=== PATIENT | male | born 1975 | race Caucasian/White ===

== ENCOUNTER 2016-08-08 09:11 | Emergency (ER) | payer BC ==
[~2016-08-08] VITALS: Ht 198.1 cm; Wt 127.1 kg
[~2016-08-08 09:11] MED LIST: HMLI SC; INSDGI SC
[2016-08-08 09:14] VITALS: TEMP 36.4; Ht 198.1 cm; Wt 127.1 kg
[2016-08-08] MEDS ORDERED: INSDGI SC (09:39)
[2016-08-08] MEDS ORDERED: [UNRECOGNIZED DRUG - OTHER] PO (09:39)
[2016-08-08] MEDS ORDERED: CHOL100010 PO (09:39)
[2016-08-08] MEDS ORDERED: INSU100I SC (09:39)
[2016-08-08] MEDS ORDERED: LPT40 PO (09:39)
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
--- NOTE | 2016-08-08 10:23 | DIAGNOSTIC IMAGING REPORT ---
RIGHT ELBOW MIN 3 VIEWS ROUTINE CLINICAL HISTORY: Pt c/o Rt elbow pain Right trauma COMPARISON: None. DISCUSSION: Linear fracture radial head. Fracture extends to the articular services. Joint effusion. There is no evidence for soft tissue swelling. IMPRESSION: Fracture radial head extending to the articular surface. Electronically signed by: Karthik Dumont M.D. 08/08/2016 10:22 AM Dictated Date/Time: 08/08/2016 10:21 AM
--- NOTE | 2016-08-08 10:25 | DIAGNOSTIC IMAGING REPORT ---
RIGHT SHOULDER MIN 2 VIEWS ROUTINE CLINICAL HISTORY: Pt c/o Rt shoulder pain Right COMPARISON: None. DISCUSSION: The bones and joint spaces appear intact. There is no evidence of fracture, dislocation or bony disease. There is no evidence for soft tissue swelling. IMPRESSION: Negative study. Electronically signed by: Karthik Dumont M.D. 08/08/2016 10:23 AM Dictated Date/Time: 08/08/2016 10:23 AM
--- NOTE | 2016-08-08 10:26 | DIAGNOSTIC IMAGING REPORT ---
RIGHT FOREARM 2 VIEWS ROUTINE CLINICAL HISTORY: Pt c/o Rt forearm pain Right trauma COMPARISON: None. DISCUSSION: Fracture radial head extending to the articular services. All remaining osseous structures are unremarkable. There is no evidence for soft tissue swelling. IMPRESSION: Fracture radial head. Electronically signed by: Karthik Dumont M.D. 08/08/2016 10:25 AM Dictated Date/Time: 08/08/2016 10:24 AM
--- NOTE | 2016-08-08 10:57 | DIAGNOSTIC IMAGING REPORT ---
RIGHT HAND MIN 3 VIEWS ROUTINE CLINICAL HISTORY: Pt c/o Rt hand pain Right trauma COMPARISON: None. DISCUSSION: The bones and joint spaces appear intact. There is no evidence of fracture, dislocation or bony disease. There is no evidence for soft tissue swelling. IMPRESSION: Negative study. Electronically signed by: Karthik Dumont M.D. 08/08/2016 10:56 AM Dictated Date/Time: 08/08/2016 10:55 AM
--- NOTE | 2016-08-08 10:58 | DIAGNOSTIC IMAGING REPORT ---
LEFT HAND MIN 3 VIEWS ROUTINE CLINICAL HISTORY: Pt c/o left hand pain trauma COMPARISON: None. DISCUSSION: The bones and joint spaces appear intact. There is no evidence of fracture, dislocation or bony disease. There is no evidence for soft tissue swelling. IMPRESSION: Negative study. Electronically signed by: Karthik Dumont M.D. 08/08/2016 10:56 AM Dictated Date/Time: 08/08/2016 10:56 AM
[2016-08-08 11:10] VITALS: BP 167/91; PULSE 74; O2SAT 100
[2016-08-08] MEDS ORDERED: OXYC-57 PO (11:12)
== END 2016-08-08 11:40 | disposition home or self-care (01) ==
LOC: C.EDB 09:13 → C.EDA 11:40
DX: S52.124A Nondisplaced fracture of head of right radius, initial encounter for closed fracture (principal); M79.645 Pain in left finger(s); V18.0XXA Pedal cycle driver injured in noncollision transport accident in nontraffic accident, initial encounter; Y92.89 Other specified places as the place of occurrence of the external cause; E11.9 Type 2 diabetes mellitus without complications; Z83.3 Family history of diabetes mellitus; Z79.4 Long term (current) use of insulin